=== PATIENT | female | born 1990 | race Caucasian/White ===

== ENCOUNTER 2020-10-19 08:06 | Emergency (ER) | payer OTHER, SELFPAY ==
[2020-10-19 08:20] VITALS: BP 107/63; PULSE 75; RESP 16; TEMP 36.3; O2SAT 100
--- NOTE | 2020-10-19 08:22 | ED.EYEPROB ---
HPI - Eye Problem General Chief complaint: Eye Problems Stated complaint: Right Eye Pain Time Seen by Provider: 10/19/20 08:25 Source: patient, RN notes reviewed and old records reviewed Mode of arrival: ambulatory Limitations: no limitations History of Present Illness HPI Narrative: 29-year-old female who presents to [facility] with complaints of right eye pain with irritation, right upper eyelid swelling since Tuesday night after wearing contact lens. Patient states that it was joe at the event she went to, had new contacts and wore mascara. Patient states that she used some eye drops that she had from a previous corneal abrasion to her left eye. Patient states that her right eye was crusted shut this morning applied warm compress to eye this morning. MD chief complaint: eye pain, eye redness and other (eye matted shut this morning) Onset (ago): day(s) (since Tuesday 2 days) Onset description: gradual Duration: progressively worsening Location: right eye Eye Symptoms: pain and photophobia Mechanism: other (contact lenses, joe environment) Severity: moderate Severity scale (1-10): 4 If Pain, Quality: aching Context: contact lens use Associated symptoms: none Treatments Prior to Arrival: other (eye drops from previous corneal abrasion to left eye) Related Data Home Medications Medication Instructions Recorded Confirmed amitriptyline 10 mg PO DAILY 10/19/20 10/19/20 norethindrone ac-eth estradiol 1 tablet PO DAILY 10/19/20 10/19/20 [Junel ()] Allergies Allergy/AdvReac Type Severity Reaction Status Date / Time No Known Allergies Allergy Verified 10/19/20 08:18 Review of Systems Review of Systems: Narrative: CONSTITUTIONAL: Denies fever, chills, or sweats. EYES: Denies visual changes,positive for redness, or discharge, pain and irritation to right eye with increase watering and photophobia ENT: Denies rhinorrhea, congestion, sore throat, or otalgia. CARDIOVASCULAR: Denies chest pain, palpitations, or edema. RESPIRATORY: Denies cough or dyspnea. GASTROINTESTINAL: Denies abdominal pain, nausea, vomiting, or diarrhea. GENITOURINARY: Denies dysuria or hematuria. SKIN: Denies rash or itching. MUSCULOSKELETAL: Denies back pain, joint pain, or myalgia. NEUROLOGIC: Denies headache, numbness, or weakness. PSYCHIATRIC: Denies anxiety or depression. All systems reviewed & are unremarkable except as noted in HPI and below PMFSH Past Medical History Medical History (Updated 10/19/20 @ 08:53 by Ana Maria Hogan NP) Insomnia Surgical History Surgical History (Updated 10/19/20 @ 08:53 by Ana Maria Hogan NP) S/P laparoscopic surgery for evaluation of ovaries Family History Family History (Updated 10/19/20 @ 08:52 by Ana Maria Hogan NP) Other No significant family history Social History Social History (Updated 10/19/20 @ 08:52 by Ana Maria Hogan NP) Smoking status: Never smoker Alcohol intake: current Alcohol use details: very rare Substance use: never Living arrangements: with family Gender identity (if verbalized by the patient): Female Comments At time of signature, agree with nursing past medical, surgical, social and family history. There is no relevant family history pertinent to the presenting complaint Exam Narrative: Exam Narrative: GENERAL: Well-appearing, well-nourished, and in no acute distress. HEAD: Normocephalic, atraumatic. EYES: PERRLA and EOMI.Right eye sclera redness with photophobia and feelings of irritation with increase watering of her right eye, denies acute sharp pain or any change in vision ENT: Nares clear, clear rhinorrhea no epistaxis. Mucous membranes moist. NECK: Supple. no lymphadenopathy CHEST: Clear to auscultation. No respiratory distress.SAO2 100% on room air HEART: Regular rate and rhythm. No murmur heard. Normal peripheral pulses. ABDOMEN: Soft, nontender, nondistended, normal active bowel sounds. EXTREMITIES: Normal range of motion. No
== END 2020-10-19 08:52 | disposition home or self-care (01) ==
PROVIDERS: Emergency Provider Registered Nurse
DX: S05.01XA Injury of conjunctiva and corneal abrasion without foreign body, right eye, initial encounter (principal); X58.XXXA Exposure to other specified factors, initial encounter
CPT/HCPCS: 99213; A9270; G0463

== ENCOUNTER 2020-11-07 11:42 | Emergency (ER) | payer OTHER, SELFPAY ==
[2020-11-07 11:51] VITALS: BP 109/60; PULSE 61; RESP 18; TEMP 36.9; O2SAT 100
--- NOTE | 2020-11-07 12:11 | ED.SKABFB ---
HPI - Skin/Abscess/Foreign Bdy General Chief complaint: Skin/Abscess/Foreign Body Stated complaint: Bump under chin Time Seen by Provider: 11/07/20 11:54 Source: patient and RN notes reviewed Mode of arrival: ambulatory Limitations: no limitations History of Present Illness HPI narrative: Patient presents today complaining of a bump to her chin. States she pulled what she thought was an ingrown hair from the area yesterday and the bump has appeared. It is painful. She has applied triple antibiotic ointment without relief of symptoms. No history of abscesses, staph infections, or boils. MD complaint: abscess/boil Related Data Home Medications Medication Instructions Recorded Confirmed norethindrone ac-eth estradiol 1 tablet PO DAILY 10/19/20 11/07/20 [ ()] Allergies Allergy/AdvReac Type Severity Reaction Status Date / Time No Known Allergies Allergy Verified 11/07/20 11:56 Review of Systems Review of Systems: Narrative: CONSTITUTIONAL: Denies body aches, fever, chills, or sweats. EYES: Denies visual changes, redness, or discharge. ENT: Denies rhinorrhea, congestion, sore throat, or otalgia. CARDIOVASCULAR: Denies chest pain, palpitations, or edema. RESPIRATORY: Denies cough or dyspnea. GASTROINTESTINAL: Denies abdominal pain, nausea, vomiting, or diarrhea. GENITOURINARY: Denies dysuria or hematuria. SKIN: Denies rash, itching, or wounds.+ bump to chin MUSCULOSKELETAL: Denies back pain, joint pain, or myalgia. NEUROLOGIC: Denies headache, numbness, tingling, or weakness. PSYCH: Denies depression or anxiety. [facility] Past Medical History Medical History Insomnia Surgical History Surgical History S/P laparoscopic surgery for evaluation of ovaries Family History Family History Other No significant family history Social History Social History Smoking status: Never smoker Alcohol intake: current Substance use: never Gender identity (if verbalized by the patient): Female Comments At time of signature, I have reviewed and agree with nursing past medical, surgical, social and family history unless otherwise noted. Please see nursing chart for further information. There is no relevant family history pertinent to the presenting complaint Exam Narrative: Exam Narrative: GENERAL: Well-appearing, well-nourished, and in no acute distress. HEAD: Normocephalic, atraumatic. EYES: EOMI. No redness or drainage. Conjunctivae normal. ENT: Mucous membranes pink and moist. NECK: Normal AROM. 0.5cm raised scabbed indurated nodule on the underside of the midline chin. It seems dry and inflamed, but without fluctuance. No active drainage. Scant erythema. CHEST: No respiratory distress. EXTREMITIES: Normal range of motion. No edema. SKIN: Warm, dry, no rash. Capillary refill normal. Normal skin turgor. NEURO: No focal deficits. Alert and oriented x3. Gait steady. PSYCH: Normal affect. No signs of depression or anxiety. Course Vital Signs Vital signs: Vital Signs Temperature 98.4 F 11/07/20 11:51 Pulse Rate 61 11/07/20 11:51 Respiratory Rate 18 11/07/20 11:51 Blood Pressure 109/60 11/07/20 11:51 Pulse Oximetry 100 11/07/20 11:51 Temperature 98.4 F 11/07/20 11:51 Pulse Rate 61 11/07/20 11:51 Respiratory Rate 18 11/07/20 11:51 Blood Pressure 109/60 11/07/20 11:51 Pulse Oximetry 100 11/07/20 11:51 Reviewed MDM - Skin/Abscess/Foreign Bdy Differential Diagnosis Differential diagnosis: Likely abscess of skin or subcutaneous tissue, urticaria, herpes zoster, cellulitis, insect bites and impetigo Critical Care Time Critical Care Time Critical Care Time: No Discharge Plan Discharge Clinical Impression: A
== END 2020-11-07 12:16 | disposition home or self-care (01) ==
PROVIDERS: Emergency Provider Nurse Practitioner
DX: L02.01 Cutaneous abscess of face (principal); L03.811 Cellulitis of head [any part, except face]
CPT/HCPCS: 99213; G0463

== ENCOUNTER 2022-05-08 10:41 | Emergency (ER) | payer OTHER, SELFPAY ==
--- NOTE | 2022-05-08 13:16 | ED.GENADULT ---
HPI - General Adult General Chief complaint: Upper Respiratory Infection Stated complaint: sore throat Time Seen by Provider: 05/08/22 13:16 Source: patient Mode of arrival: ambulatory Limitations: no limitations History of Present Illness HPI narrative: 31-year-old female patient presents to the [facility] with complaints of sore throat for the past week. Patient states her daughter was recently treated for strep throat. Patient states her sore throat was worse when she woke up this morning. Denies any fevers she is aware of. Denies any cough, chest pain or shortness of breath. Related Data Allergies Allergy/AdvReac Type Severity Reaction Status Date / Time No Known Allergies Allergy Verified 05/08/22 12:13 Review of Systems Review of Systems: CONSTITUTIONAL: Denies fever, chills, or sweats. EYES: Denies visual changes, redness, or discharge. ENT: Denies rhinorrhea, congestion, positive sore throat, denies otalgia. CARDIOVASCULAR: Denies chest pain, palpitations, or edema. RESPIRATORY: Denies cough or dyspnea. GASTROINTESTINAL: Denies abdominal pain, nausea, vomiting, or diarrhea. GENITOURINARY: Denies dysuria or hematuria. SKIN: Denies rash or itching. MUSCULOSKELETAL: Denies back pain, joint pain, or myalgia. NEUROLOGIC: Denies headache, numbness, or weakness. PSYCHIATRIC: Denies anxiety or depression. [facility] Past Medical History Medical History Insomnia Surgical History Surgical History S/P laparoscopic surgery for evaluation of ovaries Family History Family History Other No significant family history Social History Social History Smoking status: Never smoker Alcohol intake: current Alcohol use details: very rare Substance use: never Gender identity (if verbalized by the patient): Female Comments At the time of my signature I agree with nursing past medical history, surgical, social, and family history. There is no relevant family history pertinent to the presenting complaint. Exam Narrative: GENERAL: Well-appearing, well-nourished, and in no acute distress. HEAD: Normocephalic, atraumatic. EYES: PERRLA and EOMI. ENT: Nares with erythema edema bilaterally, no rhinorrhea or epistaxis. Mucous membranes moist. Posterior pharynx with erythema, tonsillar enlargement on bilateral sides and exudates noted to bilateral tonsils. Bilateral TMs are clear with no erythema from buys the canal. NECK: Supple. No lymphadenopathy CHEST: Clear to auscultation. No respiratory distress. HEART: Regular rate and rhythm. No murmur heard. Normal peripheral pulses. ABDOMEN: Soft, nontender, nondistended, normal active bowel sounds. EXTREMITIES: Normal range of motion. No edema. SKIN: Warm, dry, no rash. NEURO: No focal deficits. Alert and oriented x3. Course Course Level of Care: Express Care Visit Vital Signs Vital signs: Vital signs reviewed. Medical Decision Making MDM Narrative Medical decision making narrative: Discussed with patient that she did test positive today for strep. We will discharge her home with an antibiotic for the strep infection she can also do warm salt water gargles, Tylenol, ibuprofen and hot tea with honey to help with the pain of the throat. Patient verbalized understanding denies any other questions or concerns at this time. Differential Diagnosis Differential Diagnosis: Differential diagnosis: Viral pharyngitis, pharyngitis, group A strep, infectious mononucleosis, gonococcal pharyngitis, exudative pharyngitis, oral candidiasis. Chronic allergies, postnasal drip, GERD, abscess formation, but glottitis, retropharyngeal abscess formation, or airway obstruction. Lab Data Labs: Strep Screen Positive Group A Strep
[2022-05-08 13:23] VITALS: BP 109/60; PULSE 94; RESP 20; TEMP 36.8; O2SAT 100
== END 2022-05-08 13:25 | disposition home or self-care (01) ==
PROVIDERS: Emergency Provider Nurse Practitioner Family
DX: J02.0 Streptococcal pharyngitis (principal)
CPT/HCPCS: 87880; 99213; G0463

== ENCOUNTER 2023-02-23 14:57 | Emergency (ER) | payer OTHER, SELFPAY ==
[2023-02-23 15:02] VITALS: BP 107/65; PULSE 79; RESP 16; TEMP 36.9; O2SAT 100
--- NOTE | 2023-02-23 15:30 | ED.GENADULT ---
HPI - General Adult General Chief complaint: Skin/Abscess/Foreign Body Stated complaint: Wounds On Right Ankle Time Seen by Provider: 02/23/23 15:30 Source: patient, RN notes reviewed and old records reviewed Mode of arrival: ambulatory Limitations: no limitations History of Present Illness HPI narrative: 32-year-old female to the [facility] with concerns of wounds to her right ankle. States has been there about 2 weeks. Has been cleaning it. States that had some yellow drainage this morning, has been pouring peroxide on it the last 2 days. Scabbed over wound noted, 0.5 cm. No erythema, fluctuance, swelling noted Related Data Home Medications Medication Instructions Recorded Confirmed No Home Medications 02/23/23 02/23/23 Allergies Allergy/AdvReac Type Severity Reaction Status Date / Time No Known Allergies Allergy Verified 02/23/23 15:02 Review of Systems Review of Systems: All systems reviewed & are unremarkable except as noted in HPI and below Constitutional: Constitutional: Reports no additional constitutional complaints Eyes: Eyes: Reports no additional eye complaints ENT: Reports system reviewed and no additional complaints, except as documented Cardiovascular: Cardiovascular: Reports no additional cardiovascular complaints, Denies chest pain and Denies dyspnea Respiratory: Respiratory: Reports no additional respiratory complaints, Denies chest congestion, Denies cough and Denies dyspnea Gastrointestinal: Gastrointestinal: Reports no additional gastrointestinal complaints, Denies abdominal pain, Denies nausea and Denies vomiting Musculoskeletal: Musculoskeletal: Reports no additional musculoskeletal complaints Integumentary/Breasts: Skin/Breast: Reports as per HPI Neurologic: Reports system reviewed and no additional complaints, except as documented Psychiatric: Psychiatric: Reports no additional psychiatric complaints Allergic/Immunologic: Allergic/Immunologic: Reports no additional allergic/immunologic complaints [facility] Past Medical History Medical History Insomnia Surgical History Surgical History S/P laparoscopic surgery for evaluation of ovaries Family History Family History Other No significant family history Social History Social History Smoking status: Never smoker Alcohol intake: current Alcohol use details: very rare Substance use: never Living arrangements: with family Gender identity (if verbalized by the patient): Female Comments At the time of my signature, I reviewed and agree with the nursing past medical, surgical, social, and family history. There is no relevant family history pertinent to the patient complaint. Exam Const: General: cooperative, healthy appearing, comfortable, no acute distress, well developed, alert and well nourished Nutritional Appearance: well nourished Orientation/consciousness: patient oriented x3 Limitations: no limitations HENMT: Head: normal to inspection Ears: hearing grossly normal bilaterally and external ears normal Face/Nose/Sinus: Normal external nose present, Normal nares present, Normal nasal mucous membranes and turbinates present, normal facial exam and face symmetric Face and sinus: normal facial exam and face symmetric Mouth: Yes Normal oral and palatal mucosa present, Yes lip normal and Yes moist mucous membranes Throat: posterior oropharynx normal and uvula midline Eyes: General: appearance normal, both eyes and all related structures Alignment and Position: alignment normal Periorbital: periorbital findings normal Pupils: Equal, round and reactive pupils present EOM: EOMs intact bilaterally Neck: Neck: normal visual inspection, full ROM, no lymphadenopathy and no meningeal signs Chest: C
== END 2023-02-23 15:43 | disposition home or self-care (01) ==
PROVIDERS: Emergency Provider Nurse Practitioner
DX: S91.009A Unspecified open wound, unspecified ankle, initial encounter (principal); X58.XXXA Exposure to other specified factors, initial encounter
CPT/HCPCS: 99212; G0463

== ENCOUNTER 2023-07-14 11:14 | Emergency (ER) | payer OTHER, SELFPAY ==
[2023-07-14 11:37] VITALS: BP 120/77; PULSE 93; RESP 16; TEMP 36.8; O2SAT 100
--- NOTE | 2023-07-14 12:06 | ED.URI ---
HPI - URI/Sore Throat General Chief Complaint: Upper Respiratory Infection Stated Complaint: Sore Throat Time Seen by Provider: 07/14/23 12:06 History of Present Illness HPI Narrative: 32 y/o female presented for c/o sore throat, cough, and nasal congestion for a few days. States her dtr is awaiting strep result, but symptoms are improving. Pt took tylenol for symptoms. Currently 10 weeks gestation. Denies sob, wheezing, n/v/d/f/c. Related Data Home Medications Medication Instructions Recorded Confirmed No Home Medications 02/23/23 07/14/23 Allergies Allergy/AdvReac Type Severity Reaction Status Date / Time No Known Allergies Allergy Verified 07/14/23 11:23 Review of Systems Review of Systems: CONSTITUTIONAL: Denies body aches, fever, chills, or sweats. EYES: Denies visual changes, redness, or discharge. ENT: reports rhinorrhea, congestion, sore throat CARDIOVASCULAR: Denies chest pain, palpitations, or edema. RESPIRATORY: reports Denies dyspnea. GASTROINTESTINAL: Denies abdominal pain, nausea, vomiting, or diarrhea. SKIN: Denies rash, itching, or wounds. MUSCULOSKELETAL: Denies back pain, joint pain, or myalgia. NEUROLOGIC: Denies headache PMFSH Past Medical History Medical History Insomnia Surgical History Surgical History S/P laparoscopic surgery for evaluation of ovaries Family History Family History Other No significant family history Social History Social History Smoking status: Never smoker Alcohol intake: current Alcohol use details: very rare Substance use: never Living arrangements: with family Gender identity (if verbalized by the patient): Female Exam Narrative: GENERAL: well-appearing, no acute distress. EYES: conjunctivae clear ENT: Mucous membranes moist. TMs pearly santizo with normal light reflex bilaterally; no tragal tenderness. Oropharynx mildly erythematous without lesions. Tonsils enlarged 1+ and without exudate. No drooling, no hoarseness, no trismus, uvula midline. No tripod positioning, hot potato voice, or soft palate swelling. NECK: Supple. No lymphadenopathy CHEST: Clear to auscultation, breath sounds equal. No respiratory distress, speaks in full sentences. HEART: Regular rate and rhythm. No murmur heard. SKIN: Warm, dry, no rash. NEURO: Alert and oriented x3. Course Course Emergency Course: Patient is aware of diagnosis, understands and agrees to treatment plan. Anticipatory guidance given. Patient agrees to follow-up as directed and is aware of reasons to seek care at the emergency department. Portions of this record may have been created with voice recognition software Level of Care: Express Care Visit Vital Signs Vital signs: Vital Signs Temperature 98.3 F 07/14/23 11:37 Pulse Rate 93 07/14/23 11:37 Respiratory Rate 16 07/14/23 11:37 Blood Pressure 120/77 07/14/23 11:37 Pulse Oximetry 100 07/14/23 11:37 Oxygen Delivery Room Air 07/14/23 11:37 Temperature 98.3 F 07/14/23 11:37 Pulse Rate 93 07/14/23 11:37 Respiratory Rate 16 07/14/23 11:37 Blood Pressure 120/77 07/14/23 11:37 Pulse Oximetry 100 07/14/23 11:37 Oxygen Delivery Room Air 07/14/23 11:37 MDM - URI/Sore Throat MDM Narrative Medical decision making narrative: Neg strep result reviewed with pt. Advise supportive treatments. Patient is appropriate for outpatient treatment and follow-up. Differential Diagnosis Differential diagnosis: Likely upper respiratory infection, viral infection and pharyngitis Lab Data Labs: Strep Screen Presumptive Negative *(Reference Range: Negative)* Discharge Plan Discharge Clinical
== END 2023-07-14 12:25 | disposition home or self-care (01) ==
PROVIDERS: Emergency Provider Nurse Practitioner Family
DX: J06.9 Acute upper respiratory infection, unspecified (principal)
CPT/HCPCS: 87081; 87880; 99213; G0463

== ENCOUNTER 2023-10-06 16:35 | Emergency (ER) | payer OTHER, SELFPAY ==
[2023-10-06 16:49] VITALS: BP 107/64; PULSE 81; RESP 16; TEMP 37.2; O2SAT 100
[2023-10-06 16:50] VITALS: BP 107/64; PULSE 81; RESP 16; TEMP 37.2; O2SAT 100
--- NOTE | 2023-10-06 16:52 | ED.UPPEXIN ---
HPI - Extremity Injury (Upper) General Chief Complaint: Extremity Injury, Upper Stated Complaint: left pinky finger nail problem Time Seen by Provider: 10/06/23 16:41 Source: patient Mode of arrival: ambulatory Limitations: no limitations History of Present Illness HPI narrative: Patient is a 32-year-old female who presents with left pinky fingernail pain after nail was bent backward 3 days ago. Reports nail is barely attached and patient is now having mild swelling and drainage from wound. Patient has been keeping it dry, cleaning it and using Neosporin. Denies Any redness. Patient is currently 5 and half months Related Data Allergies Allergy/AdvReac Type Severity Reaction Status Date / Time No Known Allergies Allergy Verified 07/14/23 11:23 Review of Systems Review of Systems: All systems reviewed & are unremarkable except as noted in HPI and below Constitutional: Constitutional: Denies body ache(s), Denies chills, Denies fatigue, Denies fever(s), Denies headache(s), Denies malaise and Denies weakness Eyes: Eyes: Denies blurry vision, Denies irritation and Denies loss of vision ENT: Denies otalgia, Denies headache(s), Denies nasal discharge, Denies sinus pain and Denies sore throat Cardiovascular: Cardiovascular: Denies chest pain, Denies irregular heart rhythm and Denies dyspnea Respiratory: Respiratory: Denies dyspnea Gastrointestinal: Gastrointestinal: Denies abdominal pain, Denies melena, Denies hematochezia, Denies diarrhea, Denies nausea and Denies vomiting Musculoskeletal: Musculoskeletal: Denies back pain, Denies myalgias and Reports arthralgias Integumentary/Breasts: Skin/Breast: Denies pruritus and Denies rash Neurologic: Denies headache(s), Denies loss of vision and Denies weakness Psychiatric: Psychiatric: Reports no additional psychiatric complaints Endocrine: Endocrine: Denies fatigue PMFSH Past Medical History Medical History Insomnia Surgical History Surgical History S/P laparoscopic surgery for evaluation of ovaries Family History Family History Other No significant family history Social History Social History Smoking status: Never smoker Alcohol intake: current Alcohol use details: very rare Substance use: never Living arrangements: with family Gender identity (if verbalized by the patient): Female Comments At time of signature, agree with nursing past medical, surgical, social and family history. There is no relevant family history pertinent to the presenting complaint. Exam Const: General: cooperative, healthy appearing, comfortable, no acute distress and well nourished Nutritional Appearance: well nourished Orientation/consciousness: patient oriented x3 Limitations: no limitations HENMT: Head: normal to inspection, normocephalic and atraumatic Ears: hearing grossly normal bilaterally and external ears normal Face/Nose/Sinus: Normal external nose present, normal facial exam and face symmetric Face and sinus: normal facial exam and face symmetric Mouth: Yes lip normal Eyes: General: appearance normal, both eyes and all related structures Alignment and Position: alignment normal and position normal Periorbital: periorbital findings normal Eyelids: eyelids normal Pupils: Equal, round and reactive pupils present EOM: EOMs intact bilaterally Neck: Neck: normal visual inspection, full ROM and supple Chest: Chest palpation & inspection: normal inspection of the chest Resp: Effort & Inspection: normal respiratory effort and able to speak in complete sentences Auscultation: clear to auscultation bilaterally Cardio: Rate: regular rate Rhythm: regular rhythm Heart sounds: S1 normal heart sound present and S2 normal heart sound p
== END 2023-10-06 17:14 | disposition home or self-care (01) ==
PROVIDERS: Emergency Provider Nurse Practitioner Family
DX: L03.012 Cellulitis of left finger (principal); O99.719 Diseases of the skin and subcutaneous tissue complicating pregnancy, unspecified trimester; Z3A.00 Weeks of gestation of pregnancy not specified
CPT/HCPCS: 99213; G0463

== ENCOUNTER 2024-04-21 17:39 | Emergency (ER) | payer OTHER, SELFPAY ==
--- NOTE | ~2024-04-21 | XR_ITS ---
EXAM: XR abdomen/kub 1V DATE: 04/21/2024 18:17 HISTORY: mid low abd pain . COMPARISON: None available. FINDINGS: Paucity of bowel gas. No organomegaly. No abnormal abdominal calcification. Regional bones and soft tissues normal for age. IMPRESSION: Paucity of bowel gas which limits evaluation for obstruction/ileus. Reviewed, dictated and finalized at location K. [facility]RAFTER
[2024-04-21 17:58] VITALS: BP 119/78; PULSE 89; RESP 16; TEMP 36.5; O2SAT 99
[2024-04-21 18:02] LABS: EDUAAPPEAR Clear; EDUABILI Negative (Negative); EDUABLOOD Negative (Negative); EDUACOLOR1 Yellow; EDUAGLUCOSE Negative (Negative); EDUAKETONE Negative (Negative); EDUALEUKO Negative (Negative); EDUANITRATE Negative (Negative); EDUAPROTEIN Negative (Negative); EDUASPGRAVITY 1.015; EDUAUROBILI 0.2
--- NOTE | 2024-04-21 18:07 | ED_ITS ---
HPI - Female Genitourinary General Chief complaint: Urogenital-Female Stated complaint: back pain, urinary issue Time Seen by Provider: 04/21/24 18:00 Source: patient Mode of arrival: ambulatory Limitations: no limitations History of Present Illness HPI Narrative: Francisco is a 33-year-old female patient presenting today with complaints of low back pain, lower abdominal discomfort, with feeling as though she is unable to completely empty her bladder x3 days. Has recently had right kidney stone and c- section. Has been in the ICU with her daughter for the past week. Does not think she has been drinking enough. She is not breast feeding. Denies any concern for sexually transmitted infection. States she has not been sexually active since she had her child. Is having some white vaginal discharge without odor and suspects this is due to her ovulating and getting ready to start her menses. Related Data Home Medications ?Medication ?Instructions ?Recorded ?Confirmed ?Last Taken ?Type buspirone 10 mg tablet 10 mg PO DAILY 04/21/24 04/21/24 Unknown History Allergies Allergy/AdvReac Type Severity Reaction Status Date / Time No Known Allergies Allergy Verified 04/21/24 17:45 Review of Systems Review of Systems: Pertinent positives per HPI. Patient denies any fever, chills, rash, headache, visual changes, dizziness, cough, runny nose, sore throat, shortness of breath, chest pain, palpitations, nausea, vomiting, diarrhea, constipation, abdominal pain, or any urinary issues. [facility] Past Medical History Medical History Insomnia Surgical History Surgical History S/P laparoscopic surgery for evaluation of ovaries Family History Family History Other No significant family history Social History Social History Smoking status: Never smoker Alcohol intake: current Alcohol use details: very rare Substance use: never Living arrangements: with family Gender identity (if verbalized by the patient): Female Comments At the time of my signature, I reviewed and agree with the nursing past medical, surgical, social, and family history. There is no relevant family history pertinent to the patient complaint. Exam Narrative: General: Well-developed, well nourished, in no apparent distress. Head: Normocephalic, atraumatic. Cardio: Regular rate and rhythm, s1 and s2 normal, no murmur appreciated. Resp: Clear to auscultation bilaterally, no rhonchi, rales, wheezing or rubs. Abdomen: Soft, pliable, bowel sounds present in all quadrants, non-tender to palpation, no organomegly, no CVAT tenderness. Course Course Emergency Course: Portions of this record may have been created with voice recognition software. Level of Care: Express Care Visit Vital Signs Vital signs: Vital Signs Temperature 36.5 C 04/21/24 17:58 Pulse Rate 89 04/21/24 17:58 Respiratory Rate 16 04/21/24 17:58 Blood Pressure 119/78 04/21/24 17:58 Pulse Oximetry 99 04/21/24 17:58 Oxygen Delivery Room Air 04/21/24 17:58 Temperature 36.5 C 04/21/24 17:58 Pulse Rate 89 04/21/24 17:58 Respiratory Rate 16 04/21/24 17:58 Blood Pressure 119/78 04/21/24 17:58 Pulse Oximetry 99 04/21/24 17:58 Oxygen Delivery Room Air 04/21/24 17:58 Vital signs reviewed Transfer Transfered to: [place] Transportation: Other (private car) Transfer rationale: lower abdomen pain/back pain r/o obstruction/ileus. Accepting physician: Janet MDM - Female Genitourinary MDM Narrative Medical decision making narrative: At the time of visit patient is resting comfortably on the exam table. Patient appears to be nontoxic. Labs: Urinalysis is negative for any sign of infection, blood, or protein in the urine. Diagnostics: KUB shows paucity of bowel gas- can not r/o ileus or obstruction. Plan: I suspect patient has constipation-possible ileus/obstruction. Recommend transfer to the emergency room for further evaluation. She would like to be transfer to [facility] in [place], [place]. Contact Janet at [facility] ER and report was given for continuity of care. Accepts patient for transfer. Patient to be transferred via private car. Differential Diagnosis Differential diagnosis: Likely urinary tract infection, bacterial vaginosis, trichomoniasis, cervicitis, ovarian cyst, vaginitis, ruptured ovarian cyst, cyst of Bartholin's gland, cystitis, dysmenorrhea and other (Constipation, renal stones, ureteral lithiasis) Lab Data Labs: Lab Results 04/21/24 Range/Units 17:59 POC Urine Color Yellow POC Urine Clarity Clear POC Urine pH 7.0 POC Ur Specif [place] 1.015 POC Urine Protein Negative (Negative) POC Ur Glucose (UA) Negative (Negative) POC Urine Ketones Negative (Negative) POC Urine Blood Negative (Negative) POC Urine Nitrite Negative (Negative) POC Urine Bilirubin Negative (Negative) POC Urine Urobilinogen 0.2 POC U Leukocyte Esteras Negative (Negative) Imaging Data Radiologist's impression: ITS Impressions Abdomen X-Ray 04/21/24 18:24 IMPRESSION: Paucity of bowel gas which limits evaluation for obstruction/ileus. Discharge Plan Discharge Clinical Impression: Bilateral lower abdominal pain Low back pain Qualifiers: Chronicity: acute Back pain laterality: bilateral Sciatica presence: without sciatica Qualified Code(s): M54.50 - Low back pain, unspecified Patient Disposition: Acute Care Hospital Condition: Stable Patient Language: [place] Prescriptions: No Action buspirone 10 mg tablet 10 mg PO DAILY Follow-up/Referrals: PHYSICIAN,DIRECTOR OF HEMOPHILIA [Primary Care Provider] - Time of Disposition: 18:50 Quality NIHSS Nursing Documentation ED NIHSS nursing documentation: reviewed/agree
== END 2024-04-21 18:47 | disposition short-term general hospital (02) ==
PROVIDERS: Emergency Provider Nurse Practitioner Family
DX: R10.31 Right lower quadrant pain (principal); R10.32 Left lower quadrant pain; M54.50 Low back pain, unspecified
CPT/HCPCS: 74018; 81003; 99213; G0463